=== PATIENT | male | born 1965 | race Caucasian/White ===

== ENCOUNTER → 2022-12-18 | Outpatient (CLI) | payer BC, SELFPAY ==
--- NOTE | 2022-12-18 16:04 | MRI_ITS ---
HISTORY: Low back pain. TECHNIQUE: Multiplanar and multisequence MR images of the lumbar spine were obtained without intravenous contrast. 130 images. COMPARISON: XR 11/02/2022. FINDINGS: VERTEBRAE: Vertebral body heights maintained. Degenerative bone marrow endplate changes at L4-5 and L5-S1. ALIGNMENT: 3 mm L4-5 anterolisthesis secondary to bilateral L4 spondylolysis. CONUS: Normal morphology and position of the conus medullaris at L1-2. INTERVERTEBRAL DISCS: T12-L1: No significant posterior disc protrusion, central canal stenosis, or foraminal narrowing based on the sagittal images. L1-2: Mild disc bulge and facet arthropathy superimposed on a developmentally narrow spinal canal resulting in minimal narrowing of the thecal sac and bilateral foramina. L2-3: Mild disc bulge and facet arthropathy superimposed on a developmentally narrow spinal canal resulting in mild-moderate central canal stenosis and bilateral foraminal narrowing. L3-4: Minimal disc bulge with prominent facet arthropathy superimposed on a developmentally narrow spinal canal resulting in mild central canal stenosis and bilateral foraminal narrowing. 5 mm right posterior synovial cyst abutting the right dorsal thecal sac. L4-5: Posterior disc bulge osteophyte complex with facet arthropathy resulting in minimal narrowing of the thecal sac and moderate-severe bilateral foraminal narrowing with bilateral L4 nerve root abutment or impingement. L5-S1: Mild posterior disc protrusion with facet arthropathy resulting in minimal narrowing of the thecal sac and moderate-severe bilateral foraminal narrowing with bilateral L5 nerve root abutment or impingement. SOFT TISSUES: Two 1 cm left renal cysts. MRI/Spine Lumbar (Routine) IMPRESSION: Mild disc bulges with facet arthropathy superimposed on a developmentally narrow spinal canal resulting in mild-moderate spinal canal stenosis with bilateral foraminal narrowing at L2-3 and mild spinal canal stenosis with bilateral foraminal narrowing at L3-4. L4 spondylolysis with grade 1 L4-5 spondylolisthesis. L4-5 degenerative change resulting in marked bilateral foraminal narrowing with probable nerve root impingement. Degenerative change of L5-S1 with marked bilateral foraminal narrowing and probable nerve root impingement. Electronically Signed: Phoebe Scott MD at 10:28 EST ,
== END | disposition home or self-care (01) ==
LOC: MRI 16:04
DX: M51.36 Other intervertebral disc degeneration, lumbar region (principal)
CPT/HCPCS: 72148

== ENCOUNTER → 2025-04-17 | Outpatient (CLI) | payer BC, SELFPAY ==
--- NOTE | 2025-04-17 13:29 | MRI_ITS ---
PROCEDURE: SPINE LUMBAR (ROUTINE) 04/17/2025 REASON FOR EXAM: PAIN TECHNIQUE: Multiplanar and multisequence images were obtained without IV contrast administration. COMPARISON: 12/18/2022 FINDINGS: Again noted is grade 1 subluxation of L4 upon L5. This appears to be due to bilateral L4 pars defects. No compression of the conus. No vertebral compression deformity. Normal abdominal aorta without paravertebral mass. L1-2 demonstrates mild canal narrowing from facet and ligamentous hypertrophy. Similar to prior. At L2-3 moderate canal narrowing from the same etiology has progressed when compared to the prior study. There is a far left lateral disc bulge which abuts the far left L2 nerve root. This may have been present previously. At L3-4, facet arthrosis results in mild canal narrowing. At L4-5, grade 1 subluxation from pars defects with mild canal narrowing. Bilateral L4 foraminal nerve root impingement is unchanged from prior. At L5-S1, concentric annular bulging and facet arthrosis produce moderate to severe narrowing of each L5 neural foramen. This appearance was present on the prior study but is mildly increased on the right compared to prior MRI/Spine Lumbar (Routine) IMPRESSION: 1. Progression of moderate canal narrowing at L2-3 with similar far left latera l disc bulge. 2. Similar grade 1 subluxation of L4 upon L5 due to bilateral pars defects. 3. Similar bilateral L4 nerve root impingement. Increasing right-sided foramin al narrowing at L5-S1 Reading Location[facility]
== END | disposition home or self-care (01) ==
LOC: OPMRI 13:14
PROVIDERS: Referring Provider Student in an Organized Health Care Education/Training Program; Visit Provider Student in an Organized Health Care Education/Training Program
DX: M43.17 Spondylolisthesis, lumbosacral region (principal); M48.061 Spinal stenosis, lumbar region without neurogenic claudication
CPT/HCPCS: 72148

== ENCOUNTER 2025-06-30 15:11 | Emergency (ER) | payer BC, SELFPAY ==
[2025-06-30] VITALS (12 sets, daily range): BP systolic 123–166; BP diastolic 72–99; PULSE 7–82; RESP 14–26; TEMP 36.7–37.1; O2SAT 98–99; BMI 35.0
--- NOTE | 2025-06-30 15:16 | CT_ITS ---
PROCEDURE: STROKE BRAIN/HEAD WITHOUT CONT 06/30/2025 REASON FOR EXAM: NEURO DEFICIT, ACUTE, STROKE SUSPECTED TECHNIQUE: STROKE BRAIN/HEAD WITHOUT CONT Coronal and Sagittal reconstruction series were provided. One or more dose reduction techniques were used (e.g., Automated exposure control, adjustment of the mA and/or kV according to patient size, use of iterative reconstruction technique. RADIATION DOSE SUMMARY: CTDlvol: 45 mGy DLP: 779 mGycm COMPARISON: June 30, 2025 CT angiogram FINDINGS: The examination became available for interpretation at 3:52 p.m. Eastern standard time. Brain: Hypodensity is seen in the left frontal region and a smaller more irregular focus of hypodensity is shown in the right parietal region. No hemorrhage is identified. The findings are more compelling for potential mass with vasogenic edema rather than ischemia. No extra-axial fluid collection is seen. CSF Spaces: Mild generalized cerebral atrophy Sinuses/Mastoids: Small mucous retention cyst or polyp in the left maxillary sinus. Mucosal thickening ethmoid sinuses. Bones: No fracture CT/STROKE Brain/Head without Cont IMPRESSION: 1. There are 2 foci of hypodensity. One in the left frontal region, and anoth er in the right parietal region worrisome for potential areas of vasogenic edema associated with (isodense) masses. Ischemia is favored less. Recommend contrast-enhanced MRI when the patient is amenable. Recommend correlation to the CT angiogram which included evidence of malignancy in the patient's chest. 2. No hemorrhage seen. The findings and impression of the report were called directly to the ordering physician, Dr. Penaloza at 3:54 p.m. additionally, we discussed scanning 4 source of malignancy. After learning the patient will be admitted, recommended that the patient be stabilized, volume and renal function assessed then have chest abdomen pelvis e valuated with IV contrast. Reading Location: [id number]
--- NOTE | 2025-06-30 15:16 | EKG12_ITS ---
Test Reason : Blood Pressure : */* mmHG Vent. Rate : 73 BPM Atrial Rate : 73 BPM P-R Int : 162 ms QRS Dur : 92 ms QT Int : 382 ms P-R-T Axes : * 9 13 degrees QTcB Int : 420 ms Sinus rhythm with Premature atrial complexes Otherwise normal ECG Confirmed by Byron Lyles ([id number]), editor trade journal BA HUTCHISON ([id number]) on 07/01/2025 9:40:18 AM Referred By: Confirmed By: Byron Lyles
--- NOTE | 2025-06-30 15:17 | CT_ITS ---
PROCEDURE: STROKE CTA HEAD AND NECK W/CON 06/30/2025 REASON FOR EXAM: NEURO DEFICIT, ACUTE, STROKE SUSPECTED TECHNIQUE: STROKE CTA HEAD AND NECK W/CON Multiplanar Sagittal and Coronal images were obtained. 3D post processing was performed CONTRAST: Isovue 370 VOLUME: 98 mL One or more dose reduction techniques were used (e.g., Automated exposure control, adjustment of the mA and/or kV according to patient size, use of iterative reconstruction technique). RADIATION DOSE SUMMARY: CTDlvol: 54 mGy DLP: 700 mGycm COMPARISON: Earlier the same day FINDINGS: Aortic Arch: Normal size and branching pattern. Mild atherosclerotic plaque. Brachiocephalic and Subclavians: Unremarkable RIGHT Carotid: Right CCA: Eccentric plaque at the carotid bulb. Right ICA: Unremarkable. Maximum stenosis (NASCET): 0 % Right ECA: Unremarkable. LEFT Carotid: Left CCA: Eccentric plaque at the carotid bulb. Left ICA: Unremarkable. Maximum stenosis (NASCET): 0 % Left ECA: Unremarkable Vertebrals: Codominant. Arise from the subclavians. Both vertebrals form the basilar. RIGHT Vertebral: Unremarkable. LEFT Vertebral: Unremarkable. Anatomy: Patent right posterior communicating artery. Aneurysm or avm: No intracranial aneurysms or large vascular malformations are identified. Anterior cerebral arteries: A1 segment is hypoplastic on the right. Anterior communicating artery is patent. Otherwise, the anterior cerebral arteries are patent. Middle cerebral arteries: Unremarkable. Basilar artery: Unremarkable. Posterior cerebral arteries: Unremarkable. Other major branches of the posterior circulation: Unremarkable. Major venous structures: Unremarkable. Other findings: Neck: No mass or lymphadenopathy except for thyroid nodule left midpole measuring 11 mm. Lungs: Right upper paratracheal and right lower paratracheal lymph node enlargement. Largest lymph node is partially necrotic in the lower paratracheal region (4R) estimated to measure 2.7 x 2.7 cm. Bones: Multilevel degenerative changes. CT/STROKE CTA Head AND Neck W/Con IMPRESSION: 1. Partially imaged lymphadenopathy in the chest worrisome for malignancy. 2. No large vessel occlusion. 3. No aneurysm or stenosis. Reading Location: [id number]
--- NOTE | 2025-06-30 15:17 | ED.VIS.STROK ---
HPI History of Present Illness Chief Complaint: Stroke Alert Informant: patient (Patient unable to give any history currently.) and spouse/S.O. Onset/Context/Timing Onset: - (Last known well time around 9 PM last night. is unsure of exactly when the symptoms started.) Current Severity: Moderate Maximum Severity: Moderate Narrative Narrative: 59-year-old male no past medical history currently on no medications. Has upcoming back surgery. said he seemed to be fine last night around 9 PM. She slept on the couch and then went out to do some things today. She said she had texted him and he did not text her back. When she got home she said the remote control was sitting on the stove and he was sitting in the living room not acting appropriately and not speaking. No prior history of similar episodes. He has not been recently ill or hospitalized. 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 Father No problems noted. Social History household members: spouse Smoking Status: Former smoker how long ago did patient quit smokin years alcohol intake: current ROS ROS ED ROS Narrative denies any medical problems.Patient unable to answer. Constitutional Constitutional ED: Denies fever(s) Eyes Eyes: Denies blurry vision ENT ENT ED: Denies ear pain Cardiovascular Cardiovascular: Denies chest pain Respiratory/Chest Respiratory/Chest: Denies cough Gastrointestinal Gastrointestinal: Denies abdominal pain Genitourinary Genitourinary ED: Denies dysuria Musculoskeletal Musculoskeletal: Denies arthralgias Integumentary Denies abscess Neurologic Neurologic: Denies headache(s) Psychiatric Psychiatric: Denies anxiety Endocrine Endocrinology: Denies polydipsia Hematologic/Lymphatic Hematologic/Lymphatic: Denies easy bleeding Allergic/Immunologic Allergic/Immunologic ED: Denies mouth swelling EXAM Physical Exam Narrative Exam Narrative: 59-year-old male sitting upright in a chair in triage. Stroke team was called. I assessed the patient in triage 1. Vital signs are stable afebrile. Sitting up in a chair. in the triage room giving the history. Patient's not really speaking. He appears to have an expressive and possibly receptive aphasia both. H EENT exam pupils round reactive light. Extract motions are intact. Moist mucous membranes. No obvious facial droop. Neck nontender no lymphadenopathy. Lungs clear to auscultation bilaterally. Heart regular rhythm rate about 80 no murmur. Chest wall ribs nontender. Abdomen soft nontender. Patient is really not moving his arms much but he will lift either leg when I ask him to. When asking to raise his arms he keeps raising his legs. He does have normal infection control preventionist strength bilaterally. He has normal dorsi plantarflexion. He has no drift of the lower extremities. There is again no facial droop he is really not speaking. Const Vital Signs: 06/30/25 15:12 06/30/25 15:20 06/30/25 15:27 Temperature 98.1 F Temperature Source Axillary Pulse Rate 82 80 Respiratory Rate 16 14 Blood Pressure 143/96 H 143/96 H Blood Pressure Mean 111 111 Pulse Ox 98 99 Oxygen Delivery Method Room Air Room Air Room Air 06/30/25 15:30 06/30/25 15:45 06/30/25 16:15 Temperature Temperature Source Pulse Rate 76 79 76 Respiratory Rate 22 H 21 H 19 H Blood Pressure 148/72 H 136/79 H 123/99 H Blood Pressure Mean 97 98 107 Pulse Ox 99 99 99 Oxygen Delivery Method Room Air Room Air Room Air 06/30/25 16:30 06/30/25 17:00 06/30/25 17:30 Temperature Temperature Source Pulse Rate 78 7 L 70 Respiratory Rate 23 H 21 H 21 H Blood Pressure 149/75 H 140/84 H 147/92 H Blood Pressure Mean 99 102 110 Pulse Ox 99 98 98 Oxygen Delivery Method Room Air Room Air Room Air 06/30/25 18:00 Temperature Temperature Source Pulse Rate 76 Respiratory Rate 22 H Blood Pressure 163/82 H Blood Pressure Mean 109 Pulse Ox 99 Oxygen Delivery Method Room Air Positive well nourished and well developed; Negative for cachectic, contractures or unkempt General Appearance ED: well developed; Negative for unkempt, cachectic, contractures or NAD Nutritional Appearance: Negative for cachectic HEENT Reports moist mucous membranes atraumatic Eyes PERRL and EOMs intact bilaterally Neck no lymphadenopathy, supple and no JVD Chest Wall inspection of chest normal and palpation of chest normal Resp normal respiratory effort and clear to auscultation bilaterally Cardio no murmurs Rate: regular rate Rhythm: regular rhythm GI normal to inspection, nondistended, normoactive bowel sounds, soft to palpation, non-tender, non-distended and no masses Auscultation: normoactive bowel sounds Palpation: Negative for tender or guarding Back/Spine no CVA tenderness Extremity normal to inspection General Extremety ED: Negative for deformity, edema or tenderness General Extremity: Negative for deformity or edema Neuro No oriented x3 Neuro Narrative: Expressive aphasia. Receptive aphasia. Follows very limited commands hard to assess his motor function. He is not talking. Sensorium / Orientation: alert Speech: Negative for speech normal Motor Exam: strength 5/5 throughout Psych mental status grossly normal Appearance: Negative for unkempt Skin no wounds General Skin Exam: Negative for jaundice Lesions: no lesions Rashes: no rashes MDM MDM MDM Narrative Medical decision making narrative: Expressive aphasia. Receptive aphasia. 59-year-old male expressive and receptive aphasia patient was placed in stroke team protocol. CTC exam labs. Most recent repeat exam around 5:50 PM. I spoke to the patient and his at length. Patient's neurologic exam is not significant change other than he is speaking more and more clearly. Our concern is that he may have a mass in his chest cavity such as lung cancer with mets to his brain but they know that this is not a specific diagnosis at this time will need further workup with additional imaging. I gave them options were to be treated they would like to go to [facility]. Have already spoken [facility] earlier spoke to the transfer line they have accepted him ER to ER. He will be started on Solu-Medrol IV for the cerebral edema. He will also be given IV Keppra due to the brain swelling. Try to prevent seizures. History & Record Review Discussion w/independent historian: Patient and Family Additional record(s) reviewed:: Prior inpatient record, Prior outpatient record and Prior ED visit Lab Data Attestation: I reviewed the patient's lab results. Lab results narrative: CBC shows a white count 12.0 H&H 11.2 and 33. Platelets 228. PT/INR 14 and 1. PTT 22. Chemistries show gap 18. BUN and creatinine 27 and 1. Glucose 110. Initial troponin 156. Chest x-ray shows lymphadenopathy cannot rule out mass. Normal cardiac silhouette. Labs: Laboratory Results - last 24 hr 06/30/25 06/30/25 15:14 15:15 WBC 12.0 H RBC 3.70 L Hgb 11.2 L Hct 33.2 L MCV 89.7 MCH 30.3 MCHC 33.7 RDW Std Deviation 39.2 RDW Coeff of Liza 12.1 Plt Count 228 MPV 9.5 Immature Gran % (Auto) 0.500 Neut % (Auto) 74.8 H Lymph % (Auto) 15.3 L [place] % (Auto) 8.0 Eos % (Auto) 1.0 Baso % (Auto) 0.4 Absolute Neuts (auto) 9.0 H Absolute Lymphs (auto) 1.83 Nucleated RBC % 0 PT 14.5 INR 1.1 APTT 22.6 L Sodium 139 Potassium 4.1 Chloride 102 Carbon Dioxide 19.2 L Anion Gap 18 H BUN 27 H Creatinine 1.09 Estim Creat Clear Calc 79.44 Est GFR (MDRD) Non-Af 79 BUN/Creatinine Ratio 24.4 H Glucose 110 H Calcium 9.8 Troponin T High Sens 156 H* POC Glucose 102 Radiography Chest X-Ray - ED: 2 View, Read by ED Physician, Read by Radiologist, Normal, Heart, Bony Structures, Chronic Changes and - (Question lymphadenopathy versus mass versus other.) Diagnostic Testing: Clinical Impression(s) from Imaging Studies Brain CT 06/30/25 15:16 IMPRESSION: 1. There are 2 foci of hypodensity. One in the left frontal region, and another in the right parietal region worrisome for potential areas of vasogenic edema associated with (isodense) masses. Ischemia is favored less. Recommend contrast-enhanced MRI when the patient is amenable. Recommend correlation to the CT angiogram which included evidence of malignancy in the patient's chest. 2. No hemorrhage seen. The findings and impression of the report were called directly to the ordering physician, Dr. Penaloza at 3:54 p.m. additionally, we discussed scanning 4 source of malignancy. After learning the patient will be admitted, recommended that the patient be stabilized, volume and renal function assessed then have chest abdomen pelvis evaluated with IV contrast. Reading Location: [facility] Head/Neck CTA 06/30/25 15:17 IMPRESSION: 1. Partially imaged lymphadenopathy in the chest worrisome for malignancy. 2. No large vessel occlusion. 3. No aneurysm or stenosis. Reading Location: [facility] Chest X-Ray 06/30/25 16:10 IMPRESSION: 1. Retrocardiac left lower lung opacity, likely pneumonia. 2. Mild right paratracheal fullness, in the region of previously identified mediastinal mass. A contrast-enhanced chest CT is recommended. Reading Location: [facility] Chest x-ray, 2 views, AP and lateral, interpreted by myself and radiologist. Shows normal cardiac silhouette there appears to be peritracheal lymphadenopathy. Cannot rule out mass. Rhythm Strip Rhythm Strip: Sinus Rhythm Rate: 73 Ectopy: PAC(s) EKG Initial EKG: Attestation: I personally reviewed and interpreted this EKG as follows: Interpretation: Sinus Rhythm and No Acute Injury Pattern Comments: Normal sinus rhythm rate 73. PACs. No acute signs of ID nor ischemia. No dysrhythmia. Critical Care Time Critical Care Time: Yes Critical care time (excluding procedures): 30-74 minutes, Including time spent:, Discussing w/Patient &/or Family/Watch And Clock Repairer, Discussing w/Consultants, Arranging Admission or Transfer, Performing Direct Patient Care at Bedside and - (38 minutes) Discharge Plan Triage Chief Complaint: Stroke Alert ED Provider: Moises Penaloza Dx/Rx/DC Orders Clinical Impression: Lung mass, Metastasis to brain, Brain edema, Expressive aphasia Prescriptions: No Action NK Primary Care Provider: Care Physician,No Primary Referrals: Care Physician,No Primary [Primary Care Provider] - Print Language: Yakut Disposition Disposition: [facility] NIHSS NIHSS 1a. Level of Consciousness: 0 - Alert; keenly responsive 1b. LOC Questions: 2 - Answers NEITHER question correctly 1c. LOC Commands: 1 - Performs ONE task correctly 2. Best Gaze: 0 - Normal 3. Visual: 0 - No visual loss 4. Facial Palsy: 0 - Normal symmetrical movements 5a. Left Arm: 0 - No drift; arm holds 90 (or 45) degrees for full 10 seconds 5b. Right Arm: 0 - No drift; arm holds 90 (or 45) degrees for full 10 seconds 6a. Left Le - No drift; leg holds 30-degree position for full 5 seconds 6b. Right Le - No drift; leg holds 30-degree position for full 5 seconds 7. Limb Ataxia: 0 - Absent 8. Sensory: 0 - Normal; no sensory loss 9. Best Language: 0 - No aphasia; normal 10. Dysarthria: 2 - Severe dysarthria; 11. Extinction and Inattention: 0 - No abnormality Total: 5 Stroke Questions Stroke Team Activated: Yes Reviewed Inclusion/Exclusion criteria: Yes
--- NOTE | 2025-06-30 15:21 | ED.RN ---
1512: MULTIPLE ATTEMPTS MADE TO CALL [facility]. LINE RINGS BUSY EACH TIME.
[2025-06-30 15:27] LABS: Hematocrit 33.2 % (40-54); Hemoglobin 11.2 g/dL (13.0-16.5); Immature Granulocytes Count 0.060 X10^3/uL (0.0-0.0); Mean Corp Hgb Conc 33.7 g/dL (32-36); Mean Corpuscular Volume 89.7 fL (80-94); Mean Platelet Vol. 9.5 fl (6.2-12.0); NRBC Flagged by Analyzer 0 % (0-5); Platelet Count 228 K/mm3 (150-450); RBC Distribution Width CV 12.1 % (11.6-14.6); RBC Distribution Width SD 39.2 fl (35.1-43.9); Red Blood Count 3.70 M/mm3 (4.6-6.2); White Blood Count 12.0 K/mm3 (4.4-11.0)
[2025-06-30 15:34] LABS: Prothrombin Time (Protime)PT. 14.5 SECONDS (11.7-14.9)
[2025-06-30 15:35] LABS: Partial Thromboplast Time 22.6 Seconds (24.1-36.2)
--- NOTE | 2025-06-30 15:36 | ED.RN ---
9 phone calls made to the [facility] stat Stroke line with busy signal every time. 3 calls made to the [facility] transfer line with busy signal as well. Stroke line answered after 10th attempt, [facility] notified of issues,
--- NOTE | 2025-06-30 15:41 | ED.RN ---
Addendum entered by Argelia Bagley 06/30/25 15:47: Correct time [facility] notifed of pt return to room is 1529, not 1516 as originally documented. Original Note: [facility] stroke line called at 1516 to notify pt was back in room in front of robot. [facility] stroke line called again at 1540 after no contact being made on robot, Candice states neurologist was paged and will beam in as soon as possible, this RN relayed to Candice this was a critical pt, she voiced understanding.
--- NOTE | 2025-06-30 15:50 | ED.RN ---
states pt is taking Tylenol 4, Percocet from relatives. Also taking Viagra from an online source.
--- NOTE | 2025-06-30 15:52 | ED.RN ---
also states pt is taking her Gabapentin for his back pain.
--- NOTE | 2025-06-30 15:52 | CHAPLAIN ---
Type of Pastoral Visit ___ Initial Visit ___ Follow-up Visit ___ On-call Visit ___ General Patient Visit ___ Spiritual Assessment ___ Family Conference ___ Bereavement _x__ Rapid Response ___ Code Blue ___ Other (describe below) Pastoral Care Referral From ___ Patient ___ Family ___ Nurse ___ Physician ___ Pit Hand ___ Community Case Manager _x__ Other (describe below) Sacrament/Intervention _x__ Active listening ___ Anointing ___ Taoism ___ Bereavement ___ Communion ___ [place] exploration ___ ___ Life review ___ Prayer ___ Reconciliation ___ Sacrament of Sick _x__ Supportive presence ___ Wedding ___ Other (describe below) Pastoral Comments responded to stroke alert in the triage; patient was taken to CT; spouse is assisted by SW to the patient's room; offer of support to spouse who indicates other family members are on their way; met step daughter and her partner at the door and made communication and escorted step daughter to the room; brought water for family members; SW on site and medical personnel asking questions at this time
--- NOTE | 2025-06-30 16:00 | ED.RN ---
[facility] called for third time to notify pt is still waiting for neurologist to beam in at 1357, they state they will notify provider again.
--- NOTE | 2025-06-30 16:10 | RAD_ITS ---
PROCEDURE: CHEST PA AND LATERAL 06/30/2025 REASON FOR EXAM: MASS TECHNIQUE: CHEST PA AND LATERAL FINDINGS: LUNGS AND PLEURA: Patchy opacity in the retrocardiac left lower lung. No pleural effusion or pneumothorax. HEART AND MEDIASTINUM: The heart size is normal. There is mild right paratracheal fullness. BONES: No acute osseous abnormality. RAD/Chest PA and Lateral IMPRESSION: 1. Retrocardiac left lower lung opacity, likely pneumonia. 2. Mild right paratracheal fullness, in the region of previously identified me diastinal mass. A contrast-enhanced chest CT is recommended. Reading Location: [id number]
[2025-06-30 16:53] LABS: Anion Gap 18 (5-15); BUN 27 mg/dL (4-19); BUN/Creat Ratio 24.4 RATIO (10-20); Calcium,Total 9.8 mg/dL (7.6-11.0); Carbon Dioxide 19.2 mmol/L (21.0-32.0); Chloride 102 mmol/L (98-108); Estimated Creatinine Clearance 79.44 ml/min (50-250); Glucose 110 mg/dL (70-99); Potassium 4.1 mmol/L (3.3-5.1)
[2025-06-30 16:56] LABS: Troponin T High Sensitivity 156 ng/L (<=22)
--- NOTE | 2025-06-30 17:45 | ED.RN ---
[facility] canceled per ED MD
[2025-06-30] MEDS: levETIRAcetam IV 1,000 MG/100 ML BAG 400 MG IV (18:24)
[2025-06-30 18:42] LABS: Troponin T High Sens 2 HR 168 ng/L (<=22)
--- NOTE | 2025-06-30 19:41 | CM.ED ---
Social Work Reason for visit: Stroke Alert SW took back to room while patient was getting further testing. SW also revisited room after patient was diagnosed and was needing to be transferred. Emotional support provided during both visits. No further needs at this time. Adriana Bajwa, FREIGHT DELIVERY DRIVER, HYDRAULIC JACK OPERATOR
--- NOTE | 2025-06-30 20:15 | EKG12_ITS ---
Test Reason : DYSRHYTHMIA Blood Pressure : */* mmHG Vent. Rate : 72 BPM Atrial Rate : 72 BPM P-R Int : 120 ms QRS Dur : 88 ms QT Int : 386 ms P-R-T Axes : -7 9 23 degrees QTcB Int : 422 ms Sinus rhythm with occasional Premature ventricular complexes Otherwise normal ECG Confirmed by Byron Lyles [id number]), industrial editor BA HUTCHISON ([id number]) on 07/01/2025 9:40:57 AM Referred By: Confirmed By: Byron Lyles
[2025-06-30 20:40] LABS: Troponin T High Sens 4 HR 179 ng/L (<=22)
== END 2025-06-30 20:38 | disposition short-term general hospital (02) ==
PROVIDERS: Emergency Provider Emergency Medicine; Visit Provider Emergency Medicine
DX: R91.8 Other nonspecific abnormal finding of lung field (principal); C79.31 Secondary malignant neoplasm of brain; G93.6 Cerebral edema; Z87.891 Personal history of nicotine dependence; R47.01 Aphasia
CPT/HCPCS: 70450; 70496; 70498; 71046; 80048; 82962; 84484; 85025; 85610; 85730; 93005; 96365; 96375; 99285; Q9967; A4216